=== PATIENT | female | born 1990 | race Caucasian/White ===

== ENCOUNTER 2020-01-27 09:58 | Emergency (ER) | payer OTHER, SELFPAY ==
--- NOTE | 2020-01-27 10:07 | ED.GENADULT ---
HPI - General Adult General Chief complaint: Skin/Abscess/Foreign Body Stated complaint: Rash Time Seen by Provider: 01/27/20 10:07 Source: patient Mode of arrival: ambulatory Limitations: no limitations History of Present Illness HPI narrative: 29-year-old female patient presents to the [facility] with complaints of a rash x3 to 4 days. Patient states that she was cleaning out her garden and thinks that she came in contact with some poison julianne or some poison oak. Patient states that it is now on bilateral lower extremities, bilateral upper extremities as well as a little bit on her face on the right cheek. Patient states it does itch and has been very uncomfortable. Patient denies taking anything for the symptoms so far. Related Data Home Medications Medication Instructions Recorded Confirmed albuterol sulfate 2 mcg INHALATION USEASDIRECTD 01/27/20 01/27/20 cariprazine [Vraylar] 1.5 mg PO DAILY 01/27/20 01/27/20 Allergies Allergy/AdvReac Type Severity Reaction Status Date / Time No Known Allergies Allergy Unverified 10/31/18 09:30 Review of Systems Review of Systems: Narrative: CONSTITUTIONAL: Denies fever, chills, or sweats. EYES: Denies visual changes, redness, or discharge. ENT: Denies rhinorrhea, congestion, sore throat, or otalgia. CARDIOVASCULAR: Denies chest pain, palpitations, or edema. RESPIRATORY: Denies cough or dyspnea. GASTROINTESTINAL: Denies abdominal pain, nausea, vomiting, or diarrhea. GENITOURINARY: Denies dysuria or hematuria. SKIN: Positive rash with itching x3 to 4 days MUSCULOSKELETAL: Denies back pain, joint pain, or myalgia. NEUROLOGIC: Denies headache, numbness, or weakness. PSYCHIATRIC: Denies anxiety or depression. [facility] Past Medical History Medical History (Updated 01/27/20 @ 10:24 by DAHLIA Tejada) Anxiety Asthma Depression Musculoskeletal disorder 2 plates and jaw in 2014, fractures of the left arm, clavicle at Social History Social History Gender identity (if verbalized by the patient): Female Comments At the time of my signature I agree with nursing past medical history, surgical, social, and family history. There is no relevant family history pertinent to the presenting complaint. Exam Narrative: Exam Narrative: GENERAL: Well-appearing, well-nourished, and in no acute distress. HEAD: Normocephalic, atraumatic. EYES: PERRLA and EOMI. ENT: Nares clear, no rhinorrhea or epistaxis. Mucous membranes moist. NECK: Supple. No lymphadenopathy CHEST: Clear to auscultation. No respiratory distress. HEART: Regular rate and rhythm. No murmur heard. Normal peripheral pulses. ABDOMEN: Soft, nontender, nondistended, normal active bowel sounds. EXTREMITIES: Normal range of motion. No edema. SKIN: Patient has rash noted to bilateral lower extremities in various areas that are linear, raised on erythemic base. There is also some small papule areas noted to the bilateral upper extremities that are slightly raised on erythemic base that are itchy and some areas with linear cagle on an erythemic base. There is also a linear area noted to the right cheek on the face with a erythemic base that is itchy. No open wounds or discharge noted. NEURO: No focal deficits. Alert and oriented x3. Course Vital Signs Vital signs: Vital Signs Temperature 36.7 C 01/27/20 10:08 Pulse Rate 90 01/27/20 10:08 Respiratory Rate 12 01/27/20 10:08 Blood Pressure 117/69 01/27/20 10:08 Pulse Oximetry 100 01/27/20 10:08 Temperature 36.7 C 01/27/20 10:08 Pulse Rate 90 01/27/20 10:08 Respiratory Rate 12 01/27/20 10:08 Blood Pressure 117/69 01/27/20 10:08 Pulse Oximetry 100 01/27/20 10:08 Vital signs reviewed. Medical Decision Making Differential Diagnosis Differential Diagnosis: Differential diagnosis: Contact dermatitis, poison julianne, poison sumac, psoriasis, eczema, allergic reaction, drug reaction, scab
[2020-01-27 10:08] VITALS: BP 117/69; PULSE 90; RESP 12; TEMP 36.7; O2SAT 100
== END 2020-01-27 10:23 | disposition home or self-care (01) ==
PROVIDERS: Emergency Provider Nurse Practitioner Family; PCP Physician Assistant
DX: L25.5 Unspecified contact dermatitis due to plants, except food (principal); J45.909 Unspecified asthma, uncomplicated
CPT/HCPCS: 99213; G0463

== ENCOUNTER 2020-06-28 08:58 | Emergency (ER) | payer OTHER, SELFPAY ==
[2020-06-28 09:06] VITALS: BP 114/72; PULSE 97; RESP 16; TEMP 37.3; O2SAT 98
--- NOTE | 2020-06-28 10:00 | ED.URI ---
HPI - URI/Sore Throat General Chief Complaint: Upper Respiratory Infection Stated Complaint: SORE THROAT/CONGESTION/FEVER/CHILLS Time Seen by Provider: 06/28/20 09:16 Source: patient and RN notes reviewed Mode of arrival: ambulatory Limitations: no limitations History of Present Illness HPI Narrative: Patient presents today complaining of a 2-day history of sore throat, rhinorrhea, subjective fever with chills and sweats, postnasal drip. She tested negative for COVID-19 on the day that her symptoms began. 2 coworkers are currently positive. Denies nausea, vomiting, diarrhea, cough, shortness of breath, loss of smell or taste. She currently rates her sore throat 4/10 and has been using a humidifier with mild relief. She has tried no [id number] medication prior to arrival. MD elicited complaint: sore throat Related Data Home Medications Medication Instructions Recorded Confirmed albuterol sulfate 2 mcg INHALATION USEASDIRECTD 01/27/20 06/28/20 cariprazine [Vraylar] 1.5 mg PO DAILY 01/27/20 06/28/20 Allergies Allergy/AdvReac Type Severity Reaction Status Date / Time No Known Allergies Allergy Unverified 06/28/20 09:04 Review of Systems Review of Systems: Narrative: CONSTITUTIONAL: Denies body aches.+ Chills, sweats, subjective fever. EYES: Denies visual changes, redness, or discharge. ENT: Denies congestion, or otalgia.+ Rhinorrhea, sore throat, postnasal drip CARDIOVASCULAR: Denies chest pain, palpitations, or edema. RESPIRATORY: Denies cough or dyspnea. GASTROINTESTINAL: Denies abdominal pain, nausea, vomiting, or diarrhea. GENITOURINARY: Denies dysuria or hematuria. SKIN: Denies rash, itching, or wounds. MUSCULOSKELETAL: Denies back pain, joint pain, or myalgia. NEUROLOGIC: Denies headache, numbness, tingling, or weakness. PSYCH: Denies depression or anxiety. [facility] Past Medical History Medical History (Updated 06/28/20 @ 10:02 by Stephanie Johnson, DAHLIA, ) Anxiety Asthma Depression Musculoskeletal disorder 2 plates and jaw in 2014, fractures of the left arm, clavicle at Social History Social History Gender identity (if verbalized by the patient): Female Comments At time of signature, I have reviewed and agree with nursing past medical, surgical, social and family history unless otherwise noted. Please see nursing chart for further information. There is no relevant family history pertinent to the presenting complaint Exam Narrative: Exam Narrative: GENERAL: Well-appearing, well-nourished, and in no acute distress. HEAD: Normocephalic, atraumatic. EYES: EOMI. No redness or drainage. Conjunctivae normal. ENT: Mucous membranes pink and moist. Nares congested. No rhinorrhea. TMs normal bilaterally. Throat normal. Uvula midline. NECK: Normal AROM. Supple. No lymphadenopathy. CHEST: No respiratory distress. Clear to auscultation. HEART: Regular rate and rhythm. No murmur appreciated. Normal peripheral pulses. EXTREMITIES: Normal range of motion. No edema. SKIN: Warm, dry, no rash. Capillary refill normal. Normal skin turgor. NEURO: No focal deficits. Alert and oriented x3. Gait steady. PSYCH: Normal affect. No signs of depression or anxiety. Course Vital Signs Vital signs: Vital Signs Temperature 99.1 F 06/28/20 09:06 Pulse Rate 97 06/28/20 09:06 Respiratory Rate 16 06/28/20 09:06 Blood Pressure 114/72 06/28/20 09:06 Pulse Oximetry 98 06/28/20 09:06 Temperature 99.1 F 06/28/20 09:06 Pulse Rate 97 06/28/20 09:06 Respiratory Rate 16 06/28/20 09:06 Blood Pressure 114/72 06/28/20 09:06 Pulse Oximetry 98 06/28/20 09:06 Reviewed MDM - URI/Sore Throat Differential Diagnosis Differential diagnosis: Likely upper respiratory infection, otitis media, sinusitis, viral infection, pharyngitis and other (Strep throat, COVID-19) Lab Data Attestation: I reviewed the patient's lab results. Labs:
== END 2020-06-28 10:15 | disposition home or self-care (01) ==
PROVIDERS: Emergency Provider Nurse Practitioner; PCP Physician Assistant
DX: U07.1 COVID-19 (principal); J45.909 Unspecified asthma, uncomplicated
CPT/HCPCS: 87081; 87426; 87880; 99213; C9803; G0463